=== PATIENT | male | born 1980 | race Caucasian/White ===

== ENCOUNTER 2022-02-22 01:36 | Inpatient (IN) | payer OTHER ==
[2022-02-22] MEDS ORDERED: Ondansetron 4 MG/2 ML SDV IVPUSH ONE (02:19)
[2022-02-22] MEDS ORDERED: fentaNYL 50 MCG/ML SDV IVPUSH ONE (02:20)
[2022-02-22 02:25] LABS: CARBON DIOXIDE,CO2 19.4 mmol/L (21.0-32.0); POTASSIUM,K 5.2 mmol/L (3.5-5.1)
[2022-02-22] MEDS ORDERED: Sodium Chloride 0.9% 10 ML Syringe FLUSH PRN (02:35)
[2022-02-22] MEDS ORDERED: Sodium Chloride 0.9% 2.5 ML Syringe FLUSH PRN (02:35)
[2022-02-22] MEDS ORDERED: Sodium Chloride 0.9% 1,000 ML IV ONE ×4 (02:35→05:21)
[2022-02-22 02:37] LABS: CORONAVIRUS COVID-19 NAA NEGATIVE (NEGATIVE); INFLUENZA A NAA NEGATIVE (NEGATIVE); INFLUENZA B NAA NEGATIVE (NEGATIVE)
[2022-02-22] MEDS ORDERED: fentaNYL 100 MCG/2 ML SDV IVPUSH ONE ×2 (02:38→05:23)
[2022-02-22] MEDS ORDERED: LORazepam 2 MG/ML SDV IVPUSH ONE ×2 (02:44→05:25)
[2022-02-22] MEDS ORDERED: Folic Acid 1 MG Tab PO ONE (02:45)
[2022-02-22] MEDS ORDERED: Pantoprazole 40 MG in Sodium Chloride 0.9% 10 ML IVPUSH ONE (02:45)
[2022-02-22] MEDS ORDERED: Thiamine 200 MG/2 ML MDV IVPUSH ONE (02:45)
[2022-02-22 05:51] LABS: CARBON DIOXIDE,CO2 23.1 mmol/L (21.0-32.0); POTASSIUM,K 5.2 mmol/L (3.5-5.1)
[2022-02-22] MEDS ORDERED: Labetalol 100 MG Tab PO ONE (06:17)
[2022-02-22] MEDS ORDERED: Piperacillin/Tazobactam 3.375 GM in Sodium Chloride 0.9% 50 ML IV ONE (06:19)
[2022-02-22] MEDS ORDERED: Magnesium Sulfate/Water 4 GM in Premix Bag 1 BAG IV ONE (08:27)
[2022-02-22] MEDS ORDERED: LORazepam 2 MG/ML SDV IVPUSH PRN (09:28)
[2022-02-22] MEDS ORDERED: Ondansetron 4 MG/2 ML SDV IVPUSH PRN (09:40)
[2022-02-22] MEDS ORDERED: Albuterol/Ipratropium 3.0-0.5 MG/3 ML Neb Soln NEB PRN (10:00)
[2022-02-22 10:27] LABS: CARBON DIOXIDE,CO2 19.1 mmol/L (21.0-32.0); POTASSIUM,K 5.7 mmol/L (3.5-5.1)
[2022-02-22] MEDS: Lactated Ringers 1,000 ML IV SCH ×2 (12:32→22:29)
[2022-02-22] MEDS: Piperacillin/Tazobactam 2.25 GM in Sodium Chloride 0.9% 50 ML IV SCH ×2 (12:35→19:35)
[2022-02-22] MEDS ORDERED: Lactated Ringers 1,000 ML IV ONE (13:07)
[2022-02-22] MEDS ORDERED: VANCOmycin 1.5 GM/300 ML 1.5 GM in Premix Bag 1 BAG IV ONE (13:30)
[2022-02-22] MEDS: Folic Acid 1 MG/0.2 ML UD Syringe IV SCH (13:53)
[2022-02-22] MEDS ORDERED: Labetalol 100 MG/20 ML MDV IVPUSH PRN (18:08)
[2022-02-22] MEDS ORDERED: Acetaminophen 650 MG in Premix Bag 1 BAG IV ONE (18:38)
[2022-02-22 19:36] LABS: CARBON DIOXIDE,CO2 21.8 mmol/L (21.0-32.0); POTASSIUM,K 5.4 mmol/L (3.5-5.1)
[2022-02-22] MEDS: Pantoprazole 40 MG in Sodium Chloride 0.9% 10 ML IVPUSH SCH (21:31)
[2022-02-23] MEDS: Piperacillin/Tazobactam 2.25 GM in Sodium Chloride 0.9% 50 ML IV SCH ×4 (00:04→19:14)
[2022-02-23] MEDS: Acetaminophen 325 MG Tab PO PRN ×3 (05:00→23:23)
[2022-02-23 06:20] LABS: CARBON DIOXIDE,CO2 22.2 mmol/L (21.0-32.0); POTASSIUM,K 5.5 mmol/L (3.5-5.1)
[2022-02-23] MEDS: Lactated Ringers 1,000 ML IV SCH ×3 (06:30→23:50)
[2022-02-23] MEDS ORDERED: Thiamine 100 MG in Sodium Chloride 0.9% 100 ML IV SCH (09:00)
[2022-02-23] MEDS: Folic Acid 1 MG/0.2 ML UD Syringe IV SCH (09:44)
[2022-02-23] MEDS: Thiamine 200 MG/2 ML MDV IVPUSH SCH (09:44)
[2022-02-23] MEDS: Pantoprazole 40 MG in Sodium Chloride 0.9% 10 ML IVPUSH SCH ×2 (09:45→21:00)
[2022-02-23] MEDS ORDERED: Lactated Ringers 1,000 ML IV ONE (12:46)
[2022-02-23] MEDS ORDERED: amLODIPine 2.5 MG Tab PO SCH (13:30)
[2022-02-23] MEDS: amLODIPine 5 MG Tab PO SCH (13:57)
[2022-02-24] MEDS ORDERED: Metoprolol Tartrate 5 MG/5 ML SDV IVPUSH ONE (00:15)
[2022-02-24] MEDS: Piperacillin/Tazobactam 2.25 GM in Sodium Chloride 0.9% 50 ML IV SCH ×2 (00:34→06:57)
[2022-02-24 06:07] LABS: CARBON DIOXIDE,CO2 24.1 mmol/L (21.0-32.0); POTASSIUM,K 4.2 mmol/L (3.5-5.1)
[2022-02-24] MEDS ORDERED: Polyethylene Glycol 3350 Powder 17 GM Packet PO PRN (10:00)
[2022-02-24] MEDS: Folic Acid 1 MG/0.2 ML UD Syringe IV SCH (10:01)
[2022-02-24] MEDS: amLODIPine 5 MG Tab PO SCH (10:01)
[2022-02-24] MEDS: Pantoprazole 40 MG in Sodium Chloride 0.9% 10 ML IVPUSH SCH ×2 (10:02→20:15)
[2022-02-24] MEDS: Thiamine 200 MG/2 ML MDV IVPUSH SCH (10:02)
[2022-02-24] MEDS: Meropenem Premix 50 ML IV SCH ×2 (12:04→20:16)
[2022-02-24] MEDS: Acetaminophen 325 MG Tab PO PRN (20:33)
[2022-02-25] MEDS: Meropenem Premix 50 ML IV SCH ×3 (03:20→20:19)
[2022-02-25 05:55] LABS: CARBON DIOXIDE,CO2 25.1 mmol/L (21.0-32.0); POTASSIUM,K 3.6 mmol/L (3.5-5.1)
[2022-02-25] MEDS: Thiamine 200 MG/2 ML MDV IVPUSH SCH (09:42)
[2022-02-25] MEDS: Pantoprazole 40 MG in Sodium Chloride 0.9% 10 ML IVPUSH SCH ×2 (09:42→20:13)
[2022-02-25] MEDS: amLODIPine 5 MG Tab PO SCH (09:43)
[2022-02-25] MEDS: Folic Acid 1 MG/0.2 ML UD Syringe IV SCH (09:45)
[2022-02-26] MEDS: Meropenem Premix 50 ML IV SCH ×2 (04:11→11:40)
[2022-02-26 06:57] LABS: CARBON DIOXIDE,CO2 27.2 mmol/L (21.0-32.0); POTASSIUM,K 3.6 mmol/L (3.5-5.1)
[2022-02-26] MEDS: Pantoprazole 40 MG in Sodium Chloride 0.9% 10 ML IVPUSH SCH (08:55)
[2022-02-26] MEDS: Thiamine 200 MG/2 ML MDV IVPUSH SCH (08:57)
[2022-02-26] MEDS: Folic Acid 1 MG/0.2 ML UD Syringe IV SCH (08:57)
[2022-02-26] MEDS: amLODIPine 5 MG Tab PO SCH (09:00)
== END 2022-02-26 16:30 | disposition home or self-care (01) | DRG 438 ==
LOC: MW.ED 01:36 → MW.ICU 06:21 → MW.MS 11:22 → MW.ICU 13:52 → MW.MS 02-24 23:23
PROVIDERS: ADMIT Student in an Organized Health Care Education/Training Program; ATTEND Student in an Organized Health Care Education/Training Program
DX: K85.20 Alcohol induced acute pancreatitis without necrosis or infection (principal); J18.9 Pneumonia, unspecified organism; K86.0 Alcohol-induced chronic pancreatitis; N17.9 Acute kidney failure, unspecified; N39.0 Urinary tract infection, site not specified; F10.239 Alcohol dependence with withdrawal, unspecified; D69.6 Thrombocytopenia, unspecified; E86.0 Dehydration; K76.0 Fatty (change of) liver, not elsewhere classified; Z20.822 Contact with and (suspected) exposure to COVID-19; I10 Essential (primary) hypertension
CPT/HCPCS: 0240U; 36415; 51702; 71045; 74176; 80048; 80053; 80202; 80305; 80307; 81001; 82140; 82947; 83605; 83690; 83735; 84100; 85025; 85610; 87040; 87086; 93005; 96361; 96365; 96366; 96367; 96375; 96376; 99285; 93010; 99222; 99232; 99239; A9270-GY; C9113; J0131; J2060; J2185; J2405; J2543; J3010; J3360; J3370; J3411; J3475; J3490; J7030; J7050; J7120